=== PATIENT | female | born 1955 | race Caucasian/White ===

== ENCOUNTER → 2018-09-19 | Outpatient (REF) | payer OTHER ==
[2018-09-21 14:43] LABS: HPV HYBRID CAPTURE II Negative (Negative)
== END ==
LOC: M SFHCWAGY 15:20
PROVIDERS: ATTEND Nurse Practitioner Women's Health
DX: Z12.4 Encounter for screening for malignant neoplasm of cervix (principal)

== ENCOUNTER → 2022-06-22 | Outpatient (CLI) | payer MEDICARE | LOC: M SOG 09:18 | PROVIDERS: ATTEND Physician Assistant | DX: M79.641 Pain in right hand (principal); M79.644 Pain in right finger(s) ==

== ENCOUNTER → 2023-02-20 | Outpatient (CLI) | payer MEDICARE | LOC: M SOG 07:56 | PROVIDERS: ATTEND Physician Assistant | DX: M25.532 Pain in left wrist (principal) ==

== ENCOUNTER 2023-07-03 08:45 | Day surgery (SDC) | payer MEDICARE ==
[~2023-07-03] VITALS: Ht 157.5 cm; Wt 97.1 kg
[~2023-07-03 08:45] MED LIST: ALPR0.25 PO; AMLO2.5T3 PO; ASPI81TA26 PO; BACITRACIN OINTMENT 30GM TUBE As Ordered ONE; DIPH50CA PO; LABE20TAB PO; LEVO125T4 PO; LEXA1TAB2 PO; LIDOCAINE W/EPINEPHRINE 1% 20ML VIAL XX ONE; MAGN400C PO; OMEP-173 PO; SODIUM BICARBONATE 8.4% INJ 50MEQ 50ML VIAL XX ONE; VALS1TAB67 PO; VITA1CAP25 PO
[2023-07-03 10:34] VITALS: BP 156/72; TEMP 97.6; O2SAT 97
== END 2023-07-03 10:56 | disposition home or self-care (01) ==
LOC: M SDC 08:45
PROVIDERS: ATTEND Orthopaedic Surgery Hand Surgery
DX: M65.4 Radial styloid tenosynovitis [de Quervain] (principal); I10 Essential (primary) hypertension; E78.00 Pure hypercholesterolemia, unspecified; E03.9 Hypothyroidism, unspecified; F41.9 Anxiety disorder, unspecified; Z79.899 Other long term (current) drug therapy; Z79.890 Hormone replacement therapy